=== PATIENT | male | born 1990 | race Caucasian/White ===

== ENCOUNTER 2022-11-16 08:19 | Day surgery (SDC) | payer BC ==
[~2022-11-16 08:19] MED LIST: Lactated Ringers 1,000 ML IV SCH; Lidocaine 1%/Sod Bicarbonate in NS 8.4% 1 ML Syringe IDERM PRN; Sodium Chloride 0.9% 10 ML Syringe FLUSH PRN; Sodium Chloride 0.9% 10 ML Syringe FLUSH SCH
[2022-11-16] MEDS ORDERED: Bupivacaine 0.5% 30 ML SDV ONE (09:34)
[2022-11-16] MEDS ORDERED: Lidocaine 1% with EPINEPHrine 1:100,000 10 ML MDV ONE (09:34)
[2022-11-16] MEDS ORDERED: Propofol 200 MG/20 ML SDV ONE ×2 (10:14)
[2022-11-16] MEDS ORDERED: Lidocaine 1% 4 ML ONE (10:14)
[2022-11-16] MEDS ORDERED: fentaNYL 100 MCG/2 ML SDV ONE ×2 (10:16→10:56)
[2022-11-16] MEDS ORDERED: Midazolam 1 MG/ML 2 ML SDV ONE (10:16)
[2022-11-16] MEDS ORDERED: ceFAZolin 2 GM Vial ONE (10:18)
[2022-11-16] MEDS ORDERED: Ondansetron 4 MG/2 ML SDV ONE (11:22)
[2022-11-16] MEDS ORDERED: Ketorolac 30 MG/ML SDV ONE (11:22)
== END 2022-11-16 13:18 | disposition home or self-care (01) ==
LOC: JD.SDS 08:19
PROVIDERS: ATTEND Surgery
DX: K42.9 Umbilical hernia without obstruction or gangrene (principal); Z87.891 Personal history of nicotine dependence
CPT/HCPCS: 00750; C1781; J0690; J1885; J2250; J2405; J2704; J3010; J3490; J7120